=== PATIENT | female | born 1935 | race Caucasian/White ===

== ENCOUNTER 2024-06-26 11:02 | Emergency (ER) | payer MEDICARE, OTHER ==
[~2024-06-26] VITALS: Ht 162.6 cm; Wt 53.0 kg
[~2024-06-26 11:02] MED LIST: AMLO1TAB22 PO; LEVO100T8 PO
[2024-06-26] MEDS: diphenhdrAMINE HCL 50 MG/1 ML VL IM ONE (12:36)
[2024-06-26] MEDS: methylPREDNISolone SOD SUCC 125 MG/2 ML VL IM ONE (12:36)
[2024-06-26 13:28] LABS: Basophils # (auto) 0.1 10 ^3/uL (0-0.2); Basophils % (auto) 0.5 % (0.0-2.0); Eosinophils # (auto) 0.3 10 ^3/uL (0-0.8); Eosinophils % (auto) 2.3 % (0.0-7.0); Hematocrit 37.4 % (36.0-46.0); Hemoglobin 12.8 g/dL (12.2-16.2); Lymphocytes # (auto) 3.5 10 ^3/uL (0.4-5.4); Mean Corpuscular Hgb Conc. 34.2 g/dL (32.0-36.0); Mean Corpuscular Volume 87.9 fL (80.0-100.0); Monocytes # (auto) 1.3 10 ^3/uL (0-1.3); Monocytes % (auto) 10.5 % (0.0-12.0); Neutrophils # (auto) 6.9 10 ^3/uL (1.6-8.6); Neutrophils % (auto) 57.7 % (37.0-80.0); Nucleated Red Blood Cells % 0.1 %; Platelet Count (auto) 342 10^3/uL (140-450); Red Blood Cells 4.25 10^6/uL (4.0-5.20); Red Cell Distribution Width 16.5 % (11.8-14.3)
[2024-06-26 13:44] LABS: Alanine Aminotransferase 18 U/L (7-40); Albumin 4.6 g/dL (3.2-4.8); Alkaline Phosphatase 99 U/L (46-116); Anion Gap 10 (5-15); Aspartate Aminotransferase 17 U/L (13-40); BUN/Creatinine Ratio 18.1 (10.0-20.0); Blood Urea Nitrogen 31 mg/dL (9-23); Calcium 10.8 mg/dL (8.7-10.4); Carbon Dioxide 24 mmol/L (20-30); Chloride 100 mmol/L (98-107); Glucose 142 mg/dL (74-106); Sodium 134 mmol/L (136-145)
[2024-06-26 13:45] LABS: Bilirubin, Total 0.6 mg/dL (0.2-1.0)
[2024-06-26] MEDS ORDERED: DIPH25CA51 PO (14:44)
[2024-06-26] MEDS ORDERED: PRED20TA2 PO (14:44)
[2024-06-26 15:02] VITALS: BP 94/63; PULSE 66; RESP 18; TEMP 98.4; O2SAT 94
== END 2024-06-26 15:04 | disposition home or self-care (01) ==
LOC: ER 11:02
DX: L50.9 Urticaria, unspecified (principal); I10 Essential (primary) hypertension; Z90.710 Acquired absence of both cervix and uterus
CPT/HCPCS: 36415; 80053; 85025; 96372; 99284; J1200; J2919